=== PATIENT | female | born 1995 | race Caucasian/White ===

== ENCOUNTER → 2018-06-26 | Outpatient (CLI) | payer BC, OTHER ==
[2018-06-26 17:22] LABS: LDL Cholesterol,Calculated 117.6 mg/dL (0.0-131.0); VLDL Calculation 16.4 mg/dL (5.00-40.00)
[2018-06-26 20:50] LABS: Hemoglobin A1C 5.1 % (4.0-6.0)
== END ==
LOC: LABWHC1 10:33
PROVIDERS: ATTEND Psychiatry & Neurology Psychiatry
DX: F31.9 Bipolar disorder, unspecified (principal)
CPT/HCPCS: 36415; 80061; 82947; 83036

== ENCOUNTER → 2019-01-07 | Outpatient (CLI) | payer BC, OTHER ==
--- NOTE | 2019-01-08 12:47 | US ---
EXAMINATION TYPE: US pelvic complete plus Dopplers DATE OF EXAM: 01/07/2019 COMPARISON: NONE CLINICAL HISTORY: 23-year-old female R10.2 Pelvic pain. Bilateral, lateral pelvic pain daily x months ; on multiple medications for ADHD, bipolar disorder, allergies, etc; on Depo Provera shot TECHNIQUE: Transabdominal sonographic images of the pelvis were acquired. Color Doppler spectral wa veform analysis of the ovarian arteries and veins. Date of LMP: 3 years ago after started Depo Provera FINDINGS: EXAM MEASUREMENTS: Uterus: 6.7 x 3.0 x 2.4 cm Endometrial Stripe: 0.6 cm Right Ovary: 3.7 x 3.6 x 2.3 cm Left Ovary: 3.0 x 2.6 x 2.2 cm 1. Uterus: Anteverted 2. Endometrium: Not abnormally thickened. 3. Right Ovary: Small hypoechoic dominant follicle or functional cyst measures 1.7 x 1.0 x 1.0cm 4. Left Ovary: multiple small follicles Spectral, color and waveform Doppler imaging shows good arterial and venous flow within the ovaries ; there is no evidence for ovarian torsion. 5. Bilateral Adnexa: Within normal limits. Additional scanning along the left lateral aspect near the groin at the site of patient's pain. No di screte abnormality is identified. 6. Posterior cul-de-sac: wnl IMPRESSION: 1. A 1.7 cm dominant follicle or functional cyst in the right ovary. No evidence for ovarian torsion. 2. No pelvic free fluid. 3. Additional targeted scanning at the site of patient's pain along the left lateral aspect of the ad nexa, near the groin region shows no discrete sonographic abdomen only.
== END | disposition home or self-care (01) ==
LOC: RADUSWWP 12:48
PROVIDERS: ATTEND Obstetrics & Gynecology
DX: R10.2 Pelvic and perineal pain (principal)
CPT/HCPCS: 76856

== ENCOUNTER 2019-08-24 18:08 | Emergency (ER) | payer BC, OTHER ==
--- NOTE | 2019-08-24 18:33 | ED ---
Psych HPI - General Chief Complaint: Psychiatric Symptoms Stated Complaint: Mental health Time Seen by Provider: 08/24/19 18:20 Source: patient Mode of arrival: ambulatory - History of Present Illness Initial Comments: Patient is a 23 year-old autistic female presenting to the emergency room with a chief complaint of for suicidal ideations. Father states they see Lulúcayetano a regular basis is currently titrating her medications. Father states the patient has been doing well for the last several years, however over the last day she has been feeling more depressed than usual. Father states the patient does not want her sister to have a general reveal democrat at the house due to chronic concerns. Patient states "I want to kill my sister". Patient states it is "either me or her". Father states that himself and the mother are deeply involved into the patient's care. States he would prefer the patient is not admitted to the hospital. States the patient typically gets agitated prior to making any threats, however now she seems to completely calm but does continue to make verbal threats. - Related Data Home Medications Medication Instructions Recorded Confirmed medroxyPROGESTERone [Depo-Provera] 150 mg INJ Q84D 08/24/19 08/24/19 Allergies Allergy/AdvReac Type Severity Reaction Status Date / Time nickel Allergy Unknown Verified 08/24/19 20:11 Review of Systems ROS Statement: Those systems with pertinent positive or pertinent negative responses have been documented in the HPI. ROS Other: All systems not noted in ROS Statement are negative. Past Medical History Past Medical History: Thyroid Disorder History of Any Multi-Drug Resistant Organisms: None Reported Past Surgical History: No Surgical Hx Reported Past Psychological History: Bipolar, Depression Smoking Status: Never smoker Past Alcohol Use History: None Reported Past Drug Use History: None Reported General Exam Limitations: no limitations General appearance: alert, in no apparent distress, obese Head exam: Present: atraumatic, normocephalic, normal inspection Eye exam: Present: normal appearance, PERRL, EOMI Pupils: Present: normal accommodation ENT exam: Present: normal exam, normal oropharynx, mucous membranes moist Neck exam: Present: normal inspection, full ROM. Absent: tenderness Respiratory exam: Present: normal lung sounds bilaterally. Absent: respiratory distress, wheezes Cardiovascular Exam: Present: regular rate, normal rhythm, normal heart sounds Extremities exam: Present: normal inspection, full ROM. Absent: tenderness Back exam: Present: normal inspection, full ROM. Absent: tenderness Neurological exam: Present: alert, oriented X3, normal gait Psychiatric exam: Present: normal affect, normal mood Skin exam: Present: warm, dry, intact, normal color Course Vital Signs 08/24/19 18:09 Temperature 98.2 F Pulse Rate 126 H Respiratory 18 Rate Blood Pressure 136/82 O2 Sat by Pulse 97 Oximetry Medical Decision Making - Medical Decision Making Patient is 23-year-old female with history of autism presenting to emergency Department with a chief complaint of suicidal ideation. Patient is disappointed because she does not want her sister to have the general reveal democrat at their house to 2 coronary concerns. The father would not like to have the patient admitted. Himself and the mother thoroughly involved in to the patient's care. EPS notified. EPS related patient and they would like to discharge the patient will be under close monitoring of the father and mother. They have an appointment scheduled to see the psychiatrist in 3 days. Return parameters thoroughly discussed with parents were understanding and agreeable. Case discussed with physician. - Lab Data Lab Results 08/24/19 Range/Units 19:00 Urine Color Yellow Urine Appearance Clear (Clear) Urine pH 5.5 (5.0-8.0) Ur Specific [place] 1.040 H (1.001-1.035) Urine Protein 1+ H (Negative) Urine Glucose (UA) Negative (Negative) Urine Ketones Trace H (Negative) Urine Blood Negative (Negative) Urine Nitrite Negative (Negative) Urine Bilirubin Negative (Negative) Urine Urobilinogen 2.0 (<2.0) mg/dL Ur Leukocyte Esterase Large H (Negative) Urine WBC 12 H (0-5) /hpf Ur Squamous Epith Cells 3 (0-4) /hpf Urine Bacteria Rare H (None) /hpf Urine Mucus Many H (None) /hpf Urine Opiates Screen Not Detected (NotDetected) Ur Oxycodone Screen Not Detected (NotDetected) Urine Methadone Screen Not Detected (NotDetected) Ur Propoxyphene Screen Not Detected (NotDetected) Ur Barbiturates Screen Not Detected (NotDetected) U Tricyclic Antidepress Not Detected (NotDetected) Ur Phencyclidine Scrn Not Detected (NotDetected) Ur Amphetamines Screen Not Detected (NotDetected) U Methamphetamines Scrn Not Detected (NotDetected) U Benzodiazepines Scrn Not Detected (NotDetected) Urine Cocaine Screen Not Detected (NotDetected) U Marijuana (THC) Screen Not Detected (NotDetected) Disposition Clinical Impression: Adjustment reaction of adolescence Disposition: HOME SELF-CARE Condition: Good Instructions (If sedation given, give patient instructions): Anxiolysis in Adults (ED) Additional Instructions: Follow-up with . Return to ED if symptoms worsen. Is patient prescribed a controlled substance at d/c from ED?: No Referrals: Geovani Gauthier MD [Primary Care Provider] - 1-2 days Time of Disposition: 20:13
[2019-08-24 19:09] LABS: Appearance,Urine Clear (Clear); Bacteria,Urine Rare /hpf; Bilirubin,Urine Negative (Negative); Blood,Urine Negative (Negative); Color,Urine Yellow; Glucose,Urine (UA) Negative (Negative); Ketones,Urine Trace (Negative); Leukocyte Esterase,Urine Large (Negative); Mucus,Urine Many /hpf; Nitrite,Urine Negative (Negative); PH, Urine 5.5 (5.0-8.0); Protein,Urine 1+ (Negative); Squamous Epithelial Cell,Urine 3 /hpf (0-4); WBC,Urine 12 /hpf (0-5)
[2019-08-24 19:19] LABS: Amphetamine Screen,Urine Not Detected (NotDetected); Barbiturate Screen,Urine Not Detected (NotDetected); Benzodiazepines Screen,Urine Not Detected (NotDetected); Cocaine Screen,Urine Not Detected (NotDetected); Methadone Screen, Urine Not Detected (NotDetected); Opiate Screen,Urine Not Detected (NotDetected); Oxycodone Screen, Urine Not Detected (NotDetected); Phencyclidine Screen,Urine Not Detected (NotDetected); Tricyclic Antidepressant,Urine Not Detected (NotDetected); Urn Cannabinoid Scrn Not Detected (NotDetected)
[2019-08-24 20:21] VITALS: BP 134/82; PULSE 108; RESP 16; TEMP 97.9
== END 2019-08-24 20:20 | disposition home or self-care (01) ==
LOC: EC 18:08
DX: F43.20 Adjustment disorder, unspecified (principal); R45.851 Suicidal ideations; Z79.3 Long term (current) use of hormonal contraceptives; Z91.048 Other nonmedicinal substance allergy status; Z86.59 Personal history of other mental and behavioral disorders
CPT/HCPCS: 80306; 81001; 82075; 99285

== ENCOUNTER → 2019-09-02 | Outpatient (CLI) | payer BC, OTHER ==
--- NOTE | 2019-09-02 09:20 | US ---
EXAMINATION TYPE: US pelvic complete DATE OF EXAM: 09/02/2019 COMPARISON: NONE CLINICAL HISTORY: R10.9 PELVIC PAIN. pelvic pain for 3 years, patient on Depo shot TECHNIQUE: Transabdominal (TA). Date of LMP: unknown EXAM MEASUREMENTS: Uterus: 6.2 x 2.0 x 4.3 cm Endometrial Stripe: 0.3 cm Right Ovary: 3.0 x 1.9 x 2.1 cm Left Ovary: 3.3 x 1.9 x 2.1 cm 1. Uterus: Anteverted appears wnl 2. Endometrium: appears wnl 3. Right Ovary: follicles noted 4. Left Ovary: follicles noted 5. Bilateral Adnexa: appears wnl 6. Posterior cul-de-sac: wnl IMPRESSION: No distinct abnormality appreciated.
== END | disposition home or self-care (01) ==
LOC: RADUSWWP 08:19 → EEVIPCON 08:20
PROVIDERS: ATTEND Obstetrics & Gynecology
DX: R10.2 Pelvic and perineal pain (principal)
CPT/HCPCS: 76856

== ENCOUNTER → 2022-11-01 | Outpatient (CLI) | payer OTHER ==
--- NOTE | 2022-11-02 07:57 | US ---
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 Pt states she has been on medication for "years" and doesn't remember what year started. GLAND SIZE: Right Lobe: 4.7 x 1.5 x 1.5 cm Overall Parenchyma: homogenous Left Lobe: 5.5 x 1.7 x 1.7 cm Overall Parenchyma: homogeneous Isthmus Thickness: 0.32 cm NODULES RIGHT: # of nodules measured on right: 0 LEFT: # of nodules measured on left: 0 ISTHMUS: # of nodules measured in the isthmus: 0 Hypoechoic area seen in right side of neck measuring 1.5 x 0.6 x 0.3cm IMPRESSION: 1. Normal ultrasound of the thyroid. 2. Right side lymphadenopathy is present. 2017 ACR TI-RADS LEVEL: *Highest TI-RADS level nodule reported
== END | disposition home or self-care (01) ==
LOC: RADUSWWP 16:00
PROVIDERS: ATTEND Family Medicine
DX: E04.1 Nontoxic single thyroid nodule (principal); R59.0 Localized enlarged lymph nodes
CPT/HCPCS: 76536

== ENCOUNTER → 2023-02-02 | Outpatient (CLI) | payer OTHER ==
--- NOTE | 2023-02-02 14:34 | US ---
EXAMINATION TYPE: US thyroid st tissue head/neck DATE OF EXAM: 02/02/2023 COMPARISON: CLINICAL INDICATION: Female, 27 years old with history of R59.0 LOCALIZED ENLARGED LYMPH NODES; Follo w up right neck lymph node. Patient states she has seasonal allergies and no recent vaccinations. TECHNIQUE: Multiple sonographic images taken of patients right neck. FINDINGS: Right neck scanned. Two prominent lymph nodes seen. 1- Lateral right neck: short axis measurement= 0.8 cm and cortical thickness= 4.4 mm 2- Superior right neck: short axis measurement= 0.9 cm and cortical thickness= 5.0 mm IMPRESSION: Nonenlarged lymph nodes identified.
== END | disposition home or self-care (01) ==
LOC: RADUSWWP 13:31
PROVIDERS: ATTEND Family Medicine
DX: R59.0 Localized enlarged lymph nodes (principal)
CPT/HCPCS: 76536

== ENCOUNTER 2024-01-15 10:51 | Emergency (ER) | payer OTHER ==
[2024-01-15 11:02] VITALS: RESP 18
--- NOTE | 2024-01-15 12:18 | CT ---
EXAMINATION TYPE: CT brain wo con CT DLP: 1095.4 mGycm, Automated exposure control for dose reduction was used. DATE OF EXAM: 01/15/2024 12:00 PM COMPARISON: None. CLINICAL INDICATION:Female, 28 years old with history of headache x 10 days, HEADACHE X10 DAYS, NAUSE A AND DIZZINESS BB PLACED OVER LUMP ON INFERIOR POSTERIOR HEAD TECHNIQUE: Brain: Multiple axial CT images of the brain were obtained without IV contrast. . Coronal and sagitta l reformats reviewed. FINDINGS: Brain: Extra-axial spaces: No abnormal extra-axial fluid collections. Ventricular system: Within normal limits Cerebral parenchyma: No acute intraparenchymal hemorrhage or mass effect. The myers-white junction is well differentiated. Cerebellum: Unremarkable. Mass effect: No evidence of midline shift. Intracranial vasculature: unremarkable Soft tissues: Normal. Calvarium/osseous structures: No depressed skull fracture. Paranasal sinuses and mastoid air cells: The mastoid air cells are clear. 1.6 cm likely mucous retent ion cyst within the inferior left maxillary sinus. The remaining paranasal sinuses are clear. Visualized orbits: Orbital contents are intact. IMPRESSION: No acute intracranial process. [facility], , 01/15/2024 12:16 PM
--- NOTE | 2024-01-15 12:46 | ED ---
Headache HPI - General Chief Complaint: Headache Stated Complaint: Headache Time Seen by Provider: 01/15/24 11:05 Source: patient, RN notes reviewed Mode of arrival: ambulatory Limitations: no limitations - History of Present Illness Initial Comments: 28-year-old female presents emergency department from urgent care to complaint of headache x 7 days. She states over the last couple days it does alleviate but comes back. Patient states she had said some increasing nasal congestion and sinus pressure. Patient states that she had some rolling around of her eyes the other day but that resolved. She denies any focal weakness no fevers chills no neck pain no trauma. - Related Data Home Medications Medication Instructions Recorded Confirmed DULoxetine HCL [Cymbalta] 60 mg PO DAILY 08/24/19 06/19/22 medroxyPROGESTERone [Depo-Provera] 150 mg INJ Q84D 08/24/19 06/19/22 ARIPiprazole [Abilify] 2 mg PO DAILY 06/19/22 06/19/22 ARIPiprazole [Abilify] 5 mg PO DAILY 06/19/22 06/19/22 Levothyroxine Sodium [Synthroid] 100 mcg PO DAILY 06/19/22 06/19/22 lamoTRIgine 200 mg PO BID 06/19/22 06/19/22 Allergies Allergy/AdvReac Type Severity Reaction Status Date / Time allopurinol Allergy Rash/Hives Verified 01/15/24 11:00 nickel Allergy Unknown Verified 01/15/24 11:00 Review of Systems ROS Statement: Those systems with pertinent positive or pertinent negative responses have been documented in the HPI. ROS Other: All systems not noted in ROS Statement are negative. Past Medical History Past Medical History: Thyroid Disorder History of Any Multi-Drug Resistant Organisms: None Reported Past Surgical History: No Surgical Hx Reported Past Anesthesia/Blood Transfusion Reactions: No Reported Reaction Past Psychological History: Bipolar, Depression Smoking Status: Never smoker Past Alcohol Use History: None Reported Past Drug Use History: None Reported General Exam Limitations: no limitations General appearance: alert, in no apparent distress Head exam: Present: atraumatic, normocephalic, normal inspection Eye exam: Present: normal appearance, PERRL, EOMI. Absent: scleral icterus, conjunctival injection, periorbital swelling ENT exam: Present: normal exam, normal oropharynx, mucous membranes moist Neck exam: Present: normal inspection, full ROM. Absent: tenderness, meningismus, lymphadenopathy Respiratory exam: Present: normal lung sounds bilaterally. Absent: respiratory distress, wheezes, rales, rhonchi, stridor Cardiovascular Exam: Present: regular rate, normal rhythm, normal heart sounds. Absent: systolic murmur, diastolic murmur, rubs, gallop, clicks Neurological exam: Present: alert, oriented X3, CN II-XII intact, reflexes normal. Absent: motor sensory deficit Skin exam: Present: warm, dry, intact, normal color. Absent: rash Course Vital Signs 01/15/24 01/15/24 10:56 12:52 Temperature 98.7 F 98.4 F Pulse Rate 90 86 Respiratory 18 18 Rate Blood Pressure 125/81 124/76 O2 Sat by Pulse 99 99 Oximetry Medical Decision Making - Medical Decision Making Was pt. sent in by a medical professional or institution (ELÍAS Carr, [employer], urgent care, hospital, or [facility]...) When possible be specific @ -Urgent care Did you speak to anyone other than the patient for history (EMS, parent, family, police, friend...)? What history was obtained from this source @ -No Did you review nursing and triage notes (agree or disagree)? Why? @ -I reviewed and agree with nursing and triage notes Were old charts reviewed (outside hosp., previous admission, EMS record, old EKG, old radiological studies, urgent care reports/EKG's, [facility] records)? Report findings @ -No old charts were reviewed Differential Diagnosis (chest pain, altered mental status, abdominal pain women, abdominal pain men, vaginal bleeding, weakness, fever, dyspnea, syncope, headache, dizziness, GI bleed, back pain, seizure, CVA, palpatations, mental health, musculoskeletal)? @ -Differential Headache: Migraine, tension, cluster, carbon monoxide, central venous thrombosis, pension karma temporal arteritis, acute closure glaucoma, intercranial hemorrhage, mastoiditis, sinusitis, head injury, this is not meant to be an all-inclusive list. EKG interpreted by me (3pts min.). @ -None X-rays interpreted by me (1pt min.). @ -None done CT interpreted by me (1pt min.). @ -CT brain showing no acute intracranial hemorrhage, masses fact, there is a retained mucoid cyst maxillary sinus otherwise no acute process U/S interpreted by me (1pt. min.). @ -None done What testing was considered but not performed or refused? (CT, X-rays, U/S, labs)? Why? @ -None What meds were considered but not given or refused? Why? @ -None Did you discuss the management of the patient with other professionals (professionals i.e. Dr., PA, [employer], lab, RT, psych nurse, social scientist, translator, teacher, bank officer, correctional counselor/case manager)? Give summary @ -No Was smoking cessation discussed for >3mins.? @ -No Was critical care preformed (if so, how long)? @ -No Were there social determinants of health that impacted care today? How? (Homelessness, low income, unemployed, alcoholism, drug addiction, transportation, low edu. Level, literacy, decrease access to med. care, halfway, rehab)? @ -No Was there de-escalation of care discussed even if they declined (Discuss DNR or withdrawal of care, Hospice)? DNR status @ -No What co-morbidities impacted this encounter? (DM, HTN, Smoking, COPD, CAD, Cancer, CVA, ARF, Chemo, Hep., AIDS, mental health diagnosis, sleep apnea, morbid obesity)? @ -None Was patient admitted / discharged? Hospital course, mention meds given and route, prescriptions, significant lab abnormalities, going to OR and other pertinent info. @ -Discharge patient has had headache which has actually been improving last couple days. May related to underlying viral illness no acute bacterial signs or evidence of sinusitis. Patient will be discharged in stable condition return parameters hannah. Undiagnosed new problem with uncertain prognosis? @ -No Drug Therapy requiring intensive monitoring for toxicity (Heparin, Nitro, Insulin, Cardizem)? @ -No Were any procedures done? @ -No Diagnosis/symptom? @ -Headache Acute, or Chronic, or Acute on Chronic? @ -Acute Uncomplicated (without systemic symptoms) or Complicated (systemic symptoms)? @ -uncomplicated Side effects of treatment? @ -No Exacerbation, Progression, or Severe Exacerbation? @ -No Poses a threat to life or bodily function? How? (Chest pain, [place], [place], pneumonia, PE, COPD, DKA, ARF, appy, cholecystitis, CVA, Diverticulitis, Homicidal, Suicidal, threat to staff... and all critical care pts) @ -No Disposition Clinical Impression: Headache Disposition: HOME SELF-CARE Condition: Stable Instructions (If sedation given, give patient instructions): Acute Headache (ED) Additional Instructions: Please return to the Emergency Department if symptoms worsen or any other concerns. Is patient prescribed a controlled substance at d/c from ED?: No Referrals: Rahat Samayoa MD [Primary Care Provider] - 1-2 days Time of Disposition: 12:46
[2024-01-15] MEDS: BUTALB/APAP/CAFF 50-325-40MG TAB PO STA (12:49)
[2024-01-15 12:53] VITALS: BP 124/76; PULSE 86; TEMP 98.4
== END 2024-01-15 12:53 | disposition home or self-care (01) ==
LOC: EC 10:51
DX: R51.9 Headache, unspecified (principal); Z88.8 Allergy status to other drugs, medicaments and biological substances; Z91.048 Other nonmedicinal substance allergy status
CPT/HCPCS: 70450; 99284

== ENCOUNTER → 2024-06-06 | Outpatient (CLI) | payer OTHER ==
--- NOTE | 2024-06-06 13:03 | XR ---
EXAMINATION TYPE: XR soft tissue neck DATE OF EXAM: 06/06/2024 12:59 PM INDICATION: Patient age:Female; 28 years old; Reason for study: R22.1 Localized swelling mass and lump, neck; PHH. pain COMPARISON: No direct comparisons. TECHNIQUE: The soft tissues of the neck were imaged in 2 views. FINDINGS: The prevertebral soft tissues are unremarkable. There is no evidence of mass effect or trac heal deviation. No acute osseous abnormality demonstrated. No evidence of subglottic narrowing. IMPRESSION: No significant abnormality identified within the soft tissues of the neck. [facility], , 06/06/2024 1:01 PM
== END | disposition home or self-care (01) ==
LOC: RADXRMAIN 12:29
PROVIDERS: ATTEND Family Medicine
DX: R22.1 Localized swelling, mass and lump, neck (principal)
CPT/HCPCS: 70360

== ENCOUNTER → 2024-06-06 | Outpatient (CLI) | payer OTHER ==
[2024-06-06 15:35] LABS: Basophils # (A) 0.09 X 10*3/uL (0.00-0.10); Basophils % (A) 1.7 %; Eosinophils # (A) 0.34 X 10*3/uL (0.04-0.35); Eosinophils % (A) 6.3 %; HCT 43.9 % (37.2-46.3); HGB 14.3 g/dL (12.0-15.0); Lymphocytes # (A) 1.76 X 10*3/uL (0.90-5.00); Lymphocytes % (A) 32.8 %; MCH 28.4 pg (27.0-32.0); MCHC 32.6 g/dL (32.0-37.0); MCV 87.3 FL (80.0-97.0); Mean Platelet Volume 8.5 FL (9.5-12.2); Monocytes # (A) 0.72 X 10*3/uL (0.20-1.00); Monocytes % (A) 13.4 %; NRBC Per 100 WBC 0 X 10*3/uL (0.00-0.01); Neutrophils # (A) 2.35 X 10*3/uL (1.80-7.70); Neutrophils % (A) 43.9 %; Platelet Count 334 X 10*3/uL (140-440); RBC 5.03 X 10*6/uL (4.10-5.20); RDW 13.2 % (11.5-14.5); WBC 5.36 X 10*3/uL (4.50-10.00)
[2024-06-06 22:07] LABS: ALT 22 U/L (8-44); AST 15 U/L (13-35); Albumin 4.5 g/dL (3.8-4.9); Alkaline Phosphatase 116 U/L (41-126); BUN/Creat Ratio 17.71 Ratio (12.00-20.00); Blood Urea Nitrogen 12.4 mg/dL (9.0-27.0); Calcium 9.7 mg/dL (8.7-10.3); Carbon Dioxide 24.1 mmol/L (21.6-31.8); Chloride 105 mmol/L (96-109); Glucose 92 mg/dL (70-110); Potassium 4.5 mmol/L (3.5-5.5); Sodium 140 mmol/L (135-145); T4, Free (Free Thyroxine) 0.92 ng/dL (0.80-1.80); Total Bilirubin 0.3 mg/dL (0.3-1.2); Total Protein 7.5 g/dL (6.2-8.2)
== END | disposition home or self-care (01) ==
LOC: LABWHC1 12:14
PROVIDERS: ATTEND Family Medicine
DX: R22.1 Localized swelling, mass and lump, neck (principal)
CPT/HCPCS: 36415; 80053; 84439; 84443; 84481; 85025